=== PATIENT | female | born 1965 | race Two or more races ===

== ENCOUNTER 2019-06-26 08:32 | Emergency (ER) | payer SELFPAY ==
[~2019-06-26] VITALS: Ht 165.1 cm; Wt 65.8 kg
[2019-06-26 08:41] VITALS: BP 123/75
[2019-06-26] MEDS ORDERED: ACETAMINOPHEN 325 MG TAB PO ONE (09:30)
== END 2019-06-26 09:54 | disposition home or self-care (01) ==
LOC: ER 08:34
DX: S60.222A Contusion of left hand, initial encounter (principal); M79.5 Residual foreign body in soft tissue; F17.210 Nicotine dependence, cigarettes, uncomplicated
CPT/HCPCS: 73130

== ENCOUNTER 2019-08-07 09:34 | Emergency (ER) | payer SELFPAY ==
[~2019-08-07] VITALS: Ht 165.1 cm; Wt 65.8 kg
[2019-08-07 09:40] VITALS: BP 116/65
== END 2019-08-07 10:50 | disposition home or self-care (01) ==
LOC: ER 09:34
DX: J20.9 Acute bronchitis, unspecified (principal); J02.9 Acute pharyngitis, unspecified; F17.210 Nicotine dependence, cigarettes, uncomplicated
CPT/HCPCS: 71046

== ENCOUNTER → 2020-06-17 | Emergency (ER) | payer SELFPAY ==
[~2020-06-17] VITALS: Ht 165.1 cm; Wt 81.6 kg
[2020-06-17 16:54] LABS: Basophils # (auto) 0.1 10 ^3/uL (0-0.2); Basophils % (auto) 0.8 % (0.0-2.0); Eosinophils # (auto) 0.2 10 ^3/uL (0-0.8); Eosinophils % (auto) 2.7 % (0.0-7.0); Hemoglobin 11.8 g/dL (12.2-16.2); Lymphocytes # (auto) 1.7 10 ^3/uL (0.4-5.4); Lymphocytes % (auto) 24.1 % (10.0-50.0); Mean Corpuscular Hemoglobin 33.3 pg (28.0-32.0); Mean Corpuscular Hgb Conc. 33.6 g/dL (32.0-36.0); Monocytes # (auto) 0.4 10 ^3/uL (0-1.3); Monocytes % (auto) 6.1 % (0.0-12.0); Neutrophils # (auto) 4.6 10 ^3/uL (1.6-8.6); Neutrophils % (auto) 66.3 % (37.0-80.0); Platelet Count (auto) 319 10^3/uL (140-450); Red Blood Cells 3.53 10^6/uL (4.0-5.20); Red Cell Distribution Width 14.1 % (11.8-14.3)
[2020-06-17 17:12] LABS: Albumin 4.2 g/dL (3.4-5.0); Calcium 8.7 mg/dL (8.5-10.1); Potassium 3.2 mmol/L (3.5-5.1)
[2020-06-17 17:15] LABS: BUN/Creatinine Ratio 13.6; Bilirubin, Total 0.4 mg/dL (0.2-1.0); Total Protein 7.8 g/dL (6.4-8.2)
[2020-06-17 18:28] VITALS: BP 96/46
== END | disposition home or self-care (01) ==
LOC: ER 15:58
DX: S09.8XXA Other specified injuries of head, initial encounter (principal); R42 Dizziness and giddiness; M25.551 Pain in right hip; E07.9 Disorder of thyroid, unspecified; F17.210 Nicotine dependence, cigarettes, uncomplicated; W18.00XA Striking against unspecified object with subsequent fall, initial encounter; Y93.89 Activity, other specified; Y92.89 Other specified places as the place of occurrence of the external cause; Y99.8 Other external cause status
CPT/HCPCS: 36415; 70450; 72192; 80053; 85025; 93005

== ENCOUNTER 2021-01-30 19:24 | Emergency (ER) | payer SELFPAY ==
[~2021-01-30] VITALS: Ht 165.1 cm; Wt 72.6 kg
[2021-01-30] MEDS ORDERED: KETOROLAC TROMETH 60MG/2ML VIAL IM ONE (21:45)
[2021-01-30 22:15] VITALS: BP 128/85
== END 2021-01-30 22:33 | disposition home or self-care (01) ==
LOC: ER 19:24
DX: L02.01 Cutaneous abscess of face (principal); F17.210 Nicotine dependence, cigarettes, uncomplicated
CPT/HCPCS: 96372; 99283; J1885